=== PATIENT | female | born 1950 | race Caucasian/White ===

== ENCOUNTER → 2017-12-12 | Outpatient (CLI) | payer MEDICARE, BC | LOC: MC.RAD 14:36 | DX: Z12.31 Encounter for screening mammogram for malignant neoplasm of breast (principal) ==

== ENCOUNTER 2019-07-21 15:20 | Emergency (ER) | payer MEDICARE, BC ==
[~2019-07-21] VITALS: Ht 167.6 cm; Wt 95.5 kg
[2019-07-21 15:29] VITALS: TEMP 98.1
[2019-07-21] MEDS ORDERED: PRINIVIL10 MG PO (16:19)
[2019-07-21] MEDS ORDERED: SYNTHROID0.1 MG/TAB PO (16:19)
[2019-07-21 17:09] VITALS: BP 138/81; PULSE 63
== END 2019-07-21 17:11 | disposition home or self-care (01) ==
LOC: COL.ER 15:20
DX: S52.501A Unspecified fracture of the lower end of right radius, initial encounter for closed fracture (principal); I10 Essential (primary) hypertension; E03.9 Hypothyroidism, unspecified; Z90.710 Acquired absence of both cervix and uterus; W19.XXXA Unspecified fall, initial encounter
CPT/HCPCS: J2704; J3010; Q4050